=== PATIENT | male | born 1945 | race Caucasian/White ===

== ENCOUNTER → 2021-03-28 | Outpatient (CLI) | payer MEDICARE, BC ==
[~2021-03-28] MED LIST: FLOMAX 0.4 MG0.4 MG PO; FOLIC ACID 1 MG1 MG PO; POLYETHYLENE GLY1 GM MC; TYLENOL EXTRA500 MG PO
== END ==
LOC: MRI 14:45
DX: C34.2 Malignant neoplasm of middle lobe, bronchus or lung (principal)
CPT/HCPCS: 70553; A9577

== ENCOUNTER → 2021-04-09 | Day surgery (SDC) | payer MEDICARE, BC | END | disposition home or self-care (01) | LOC: OR 10:36 | DX: C34.91 Malignant neoplasm of unspecified part of right bronchus or lung (principal); Z88.8 Allergy status to other drugs, medicaments and biological substances; J44.9 Chronic obstructive pulmonary disease, unspecified; Z20.822 Contact with and (suspected) exposure to COVID-19; I10 Essential (primary) hypertension; N40.0 Benign prostatic hyperplasia without lower urinary tract symptoms | CPT/HCPCS: 77001; C1769; C1788; J0690; J1642; J2250; J2405; J2704; J3010; J7030; J7040; J7120 ==

== ENCOUNTER → 2021-07-09 | Outpatient (CLI) | payer MEDICARE, BC | LOC: CT 11:09 | DX: C34.2 Malignant neoplasm of middle lobe, bronchus or lung (principal); J91.0 Malignant pleural effusion; J43.9 Emphysema, unspecified; K80.20 Calculus of gallbladder without cholecystitis without obstruction; K42.9 Umbilical hernia without obstruction or gangrene | CPT/HCPCS: 71260; Q9967 ==

== ENCOUNTER → 2021-08-12 | Outpatient (CLI) | payer MEDICARE, BC | LOC: RAD 16:53 | DX: J43.9 Emphysema, unspecified (principal) | CPT/HCPCS: 71046 ==

== ENCOUNTER → 2021-08-22 | Outpatient (CLI) | payer MEDICARE, BC | LOC: HEART 5 14:13 | DX: J90 Pleural effusion, not elsewhere classified (principal) | CPT/HCPCS: 71046; 94060; 94729 ==

== ENCOUNTER 2021-09-23 18:41 | Emergency (ER) | payer MEDICARE, BC ==
[2021-09-23 20:39] LABS: HEMOGLOBIN 12.6 gm/dl (14.0-17.5); RED BLOOD COUNT 4.78 M/UL (4.20-5.50); WHITE BLOOD COUNT 8.5 K/UL (4.5-11.0)
[2021-09-23 21:00] LABS: BUN/CREATININE RATIO 19 (0-10)
[2021-09-23] MEDS ORDERED: IPRAT-ALBUT 0.5-3 ML INH (22:54)
[2021-09-23] MEDS ORDERED: PREDNISONE 20 M20 MG PO (22:54)
[2021-09-23] MEDS ORDERED: PROAIR HFA8.5 GM INH (22:54)
[2021-09-23] MEDS ORDERED: AZITHROMYCIN500 MG PO (22:54)
[2021-09-23] MEDS ORDERED: CEFDINIR300 MG PO (22:54)
== END 2021-09-23 23:00 | disposition home or self-care (01) ==
LOC: ER1 18:41
PROVIDERS: Physician Assistant
DX: J44.0 Chronic obstructive pulmonary disease with (acute) lower respiratory infection (principal); J18.9 Pneumonia, unspecified organism; J44.1 Chronic obstructive pulmonary disease with (acute) exacerbation; J90 Pleural effusion, not elsewhere classified; Z85.118 Personal history of other malignant neoplasm of bronchus and lung; Z20.822 Contact with and (suspected) exposure to COVID-19
CPT/HCPCS: 0240U; 36600; 71045; 80053; 82550; 82553; 82803; 83605; 83874; 83880; 84484; 85025; 85610; 87040; 93005; 96374; 99285; J2930

== ENCOUNTER → 2021-10-16 | Outpatient (CLI) | payer MEDICARE, BC ==
[~2021-10-16] VITALS: Ht 180.3 cm; Wt 69.9 kg
[~2021-10-16] MED LIST changes: +AZITHROMYCIN500 MG PO; +CEFDINIR300 MG PO; +IPRAT-ALBUT 0.5-3 ML INH; +PREDNISONE 20 M20 MG PO; +PROAIR HFA8.5 GM INH
== END ==
LOC: OPSV 08:52
DX: Z45.2 Encounter for adjustment and management of vascular access device (principal); J94.8 Other specified pleural conditions
CPT/HCPCS: G0463; J2001

== ENCOUNTER → 2021-10-22 | Outpatient (CLI) | payer MEDICARE, BC | LOC: CT 10-15 11:30 | DX: C34.2 Malignant neoplasm of middle lobe, bronchus or lung (principal); J91.0 Malignant pleural effusion | CPT/HCPCS: 71260; Q9967 ==

== ENCOUNTER → 2021-12-23 | Outpatient (CLI) | payer MEDICARE, BC | LOC: EXRD 15:18 | DX: J91.0 Malignant pleural effusion (principal) | CPT/HCPCS: 71046 ==

== ENCOUNTER → 2022-01-23 | Outpatient (CLI) | payer MEDICARE, BC ==
[2022-01-23 10:48] LABS: HEMOGLOBIN 15.1 gm/dl (14.0-17.5); RED BLOOD COUNT 5.51 M/UL (4.20-5.50); WHITE BLOOD COUNT 10.3 K/UL (4.5-11.0)
[2022-01-23 11:03] LABS: BUN/CREATININE RATIO 21 (0-10)
== END ==
LOC: CT 10:03
PROVIDERS: Internal Medicine Hematology & Oncology
DX: C34.2 Malignant neoplasm of middle lobe, bronchus or lung (principal); J91.0 Malignant pleural effusion; Z79.899 Other long term (current) drug therapy
CPT/HCPCS: 36415; 71260; 80053; 83615; 84443; 85025; Q9967

== ENCOUNTER → 2022-04-08 | Outpatient (CLI) | payer MEDICARE, BC | LOC: HEART 5 13:35 | DX: J18.9 Pneumonia, unspecified organism (principal) | CPT/HCPCS: 94060; 94729 ==

== ENCOUNTER → 2022-04-15 | Outpatient (CLI) | payer MEDICARE, BC ==
[2022-04-15 11:48] LABS: HEMOGLOBIN 15.4 gm/dl (14.0-17.5); RED BLOOD COUNT 5.35 M/UL (4.20-5.50); WHITE BLOOD COUNT 8.3 K/UL (4.5-11.0)
[2022-04-15 12:56] LABS: BUN/CREATININE RATIO 14 (0-10)
== END ==
LOC: CT 11:18
PROVIDERS: Internal Medicine Hematology & Oncology
DX: C34.2 Malignant neoplasm of middle lobe, bronchus or lung (principal); J91.0 Malignant pleural effusion; Z79.899 Other long term (current) drug therapy; R91.8 Other nonspecific abnormal finding of lung field
CPT/HCPCS: 36415; 71260; 80053; 84443; 85025; Q9967